=== PATIENT | male | born 1995 | race Caucasian/White ===

== ENCOUNTER 2016-07-05 06:34 | Day surgery (SDC) | payer BC ==
[~2016-07-05 06:34] MED LIST: Lactated Ringers 1,000 ML IV SCH; Lidocaine 1%/Sod Bicarbonate in NS 8.4% 1 ML Syringe IV PRN; Sodium Chloride 0.9% 10 ML Syringe FLUSH PRN
[2016-07-05] MEDS ORDERED: Propofol 200 MG/20 ML SDV ONE (06:48)
[2016-07-05] MEDS ORDERED: Lidocaine 1% 4 ML ONE (06:48)
[2016-07-05] MEDS ORDERED: Dexamethasone 4 MG/ML 5 ML MDV ONE (06:48)
[2016-07-05] MEDS ORDERED: Ondansetron 4 MG/2 ML SDV ONE (06:48)
[2016-07-05] MEDS ORDERED: Ketamine 500 mg/10 ML MDV ONE (06:49)
[2016-07-05] MEDS ORDERED: fentaNYL 250 MCG/5 ML SDV ONE (06:49)
[2016-07-05] MEDS ORDERED: EPINEPHrine 1:1000 1 MG/ML 30 ML MDV ONE (06:49)
[2016-07-05] MEDS ORDERED: Midazolam 1 MG/ML 2 ML SDV ONE (06:49)
[2016-07-05] MEDS ORDERED: Bupivacaine 0.25% 30 ML SDV ONE (06:56)
--- NOTE | 2016-07-05 07:05 | PCM.PREANE ---
Preanesthetic Assessment - Anesthesia/Transfusion/Family Hx Anesthesia History: Prior Anesthesia Without Reaction Type of Anesthesia Reaction: Unknown Family History of Anesthesia Reaction: No Transfusion History: No Prior Transfusion(s) Type of Transfusion Reactions: Reports: Unknown Intubation History: Unknown - Review of Systems General: No Symptoms Pulmonary: No Symptoms Cardiovascular: No Symptoms Gastrointestinal: No symptoms Neurological: No Symptoms Other: Reports: None - Physical Assessment NPO Status Date: 07/04/16 NPO Status Time: 21:00 Pulse: 54 O2 Sat by Pulse Oximetry: 98 Respiratory Rate: 19 Blood Pressure: 129/70 Height: 1.91 m Weight: 95.254 kg ASA Class: 2 Mental Status: Alert & Oriented x3 Airway Class: Mallampati = 1 Dentition: Reports: Normal Dentition Thyro-Mental Finger Breadths: 3 Mouth Opening Finger Breadths: 3 ROM/Head Extension: Full Lungs: Clear to auscultation, Normal respiratory effort Cardiovascular: Regular Rate, Regular Rhythm - Lab Values: Laboratory Last Values WBC 5.89 K/mm3 (4.23-9.07) 06/29/16 13:04 RBC 5.25 M/mm3 (4.63-6.08) 06/29/16 13:04 Hgb 15.4 gm/L (13.7-17.5) 06/29/16 13:04 Hct 43.9 % (40.1-51.0) 06/29/16 13:04 MCV 83.6 fl (79.0-92.2) 06/29/16 13:04 MCH 29.3 pg (25.7-32.2) 06/29/16 13:04 MCHC 35.1 g/dl (32.2-35.5) 06/29/16 13:04 RDW Std Deviation 38.8 fL (35.1-43.9) 06/29/16 13:04 Plt Count 245 K/mm3 (163-337) 06/29/16 13:04 MPV 11.3 fl (9.4-12.3) 06/29/16 13:04 Neut % (Auto) 55.3 % (34.0-67.9) 06/29/16 13:04 Lymph % (Auto) 33.8 % (21.8-53.1) 06/29/16 13:04 [place] % (Auto) 8.5 % (5.3-12.2) 06/29/16 13:04 Eos % (Auto) 1.5 (0.8-7.0) 06/29/16 13:04 Baso % (Auto) 0.7 % (0.1-1.2) 06/29/16 13:04 Neut # (Auto) 3.26 K/mm3 (1.78-5.38) 06/29/16 13:04 Lymph # (Auto) 1.99 K/mm3 (1.32-3.57) 06/29/16 13:04 [place] # (Auto) 0.50 K/mm3 (0.30-0.82) 06/29/16 13:04 Eos # (Auto) 0.09 K/mm3 (0.04-0.54) 06/29/16 13:04 Baso # (Auto) 0.04 K/mm3 (0.01-0.08) 06/29/16 13:04 Sodium 139 mEq/L (136-145) 06/29/16 13:04 Potassium 3.7 mEq/L (3.5-5.1) 06/29/16 13:04 Chloride 106 mEq/L (98-107) 06/29/16 13:04 Carbon Dioxide 25 mEq/L (21-32) 06/29/16 13:04 Anion Gap 11.7 (5-15) 06/29/16 13:04 BUN 13 mg/dL (7-18) 06/29/16 13:04 Creatinine 1.0 mg/dL (0.7-1.3) 06/29/16 13:04 Est Cr Clr Drug Dosing 138.49 mL/min 06/29/16 13:04 Estimated GFR (MDRD) > 60 mL/min (>60) 06/29/16 13:04 BUN/Creatinine Ratio 13.0 (14-18) L 06/29/16 13:04 Glucose 99 mg/dL (74-106) 06/29/16 13:04 Calcium 9.1 mg/dL (8.5-10.1) 06/29/16 13:04 MRSA (PCR) Negative 06/29/16 13:04 - Allergies Allergies/Adverse Reactions: Allergies Allergy/AdvReac Type Severity Reaction Status Date / Time hayfever Allergy Itching Uncoded 07/04/16 15:03 - Blood Blood Available: No Product(s) Available: None - Anesthesia Plan Pre-Op Medication Ordered: None - Acknowledgements Anesthesia Type Planned: General Anesthesia Pt an Appropriate Candidate for the Planned Anesthesia: Yes Alternatives and Risks of Anesthesia Discussed w Pt/Guardian: Yes Pt/Guardian Understands and Agrees with Anesthesia Plan: Yes PreAnesthesia Questionnaire - Past Health History Medical/Surgical History: Denies Medical/Surgical History Cardiovascular History: Reports: None Respiratory History: Reports: None Gastrointestinal History: Reports: None Genitourinary History: Reports: None [employer]DI[employer] WORKER History: Reports: None Neurological History: Reports: None Psychiatric History: Reports: None Endocrine/Metabolic History: Reports: None Hematologic History: Reports: None Immunologic History: Reports: None Oncologic (Cancer) History: Reports: None Dermatologic History: Reports: None - Past Surgical History Head Surgeries/Procedures: Reports: None HEENT Surgical History: Reports: Other (see below) Other HEENT Surgeries/Procedures: ear surgery Musculoskeletal Surgical History: Reports: Other (see below) Other Musculoskeletal Surgeries/Procedures:: toe surgery - SUBSTANCE USE Smoking Status *Q: Current Every Day Smoker Tobacco Use Within Last Twelve Months: Snuff/Dip Second Hand Smoke Exposure: No Days Per Week of Alcohol Use: 0 Recreational Drug Use History: No - HOME MEDS Home Medications: Home Meds Cyclobenzaprine [Flexeril] 10 mg PO TID PRN #40 tablet 07/05/16 [Rx] Hydrocodone/Acetaminophen [[place] 5-325 Tablet] 1 - 2 each PO Q6H PRN #40 tablet 07/05/16 [Rx] Aspirin 325 mg PO BID #84 tablet 07/06/16 [Rx] - CURRENT (IN HOUSE) MEDS Current Meds: Current Medications Lactated Ringer's (Ringers, Lactated) 1,000 mls @ 125 mls/hr IV ASDIRECTED RICO Stop: 07/05/16 23:00 Lidocaine/Sodium Bicarbonate (Buffered Lidocaine 1% In Ns 8.4%) 0.25 ml IV ONETIME PRN PRN Reason: Prior to IV Start Stop: 07/05/16 18:00 Sodium Chloride (Saline Flush) 10 ml FLUSH ASDIRECTED PRN PRN Reason: Keep Vein Open Stop: 07/05/16 18:00 Discontinued Medications Dexamethasone (Dexamethasone) Confirm Administered Dose 20 mg .ROUTE .STK-MED ONE Stop: 07/05/16 06:49 Epinephrine HCl (Adrenalin 1:1000) Confirm Administered Dose 30 mg .ROUTE .STK- MED ONE Stop: 07/05/16 06:50 Fentanyl (Sublimaze) Confirm Administered Dose 250 mcg .ROUTE .STK-MED ONE Stop: 07/05/16 06:50 Lidocaine HCl (Xylocaine-Mpf 1%) Confirm Administered Dose 4 mls @ as directed .ROUTE .STK-MED ONE Stop: 07/05/16 06:49 Ketamine HCl (Ketalar) Confirm Administered Dose 500 mg .ROUTE .STK-MED ONE Stop: 07/05/16 06:50 Midazolam HCl (Versed 1 Mg/Ml) Confirm Administered Dose 2 mg .ROUTE .STK-MED ONE Stop: 07/05/16 06:50 Ondansetron HCl (Zofran) Confirm Administered Dose 4 mg .ROUTE .STK-MED ONE Stop: 07/05/16 06:49 Propofol (Diprivan 20 Ml) Confirm Administered Dose 200 mg .ROUTE .STK-MED ONE Stop: 07/05/16 06:49
[2016-07-05] MEDS ORDERED: Ondansetron 4 MG/2 ML SDV IVPUSH PRN (08:23)
[2016-07-05] MEDS ORDERED: Meperidine PF 50 MG/ML Syringe IVPUSH PRN (08:23)
[2016-07-05] MEDS ORDERED: fentaNYL 100 MCG/2 ML SDV IVPUSH PRN (08:23)
[2016-07-05] MEDS ORDERED: diphenhydrAMINE 50 MG/ML SDV IVPUSH PRN (08:23)
[2016-07-05] MEDS ORDERED: HYDROmorphone 1 MG/ML Syringe ONE ×2 (08:27→08:45)
[2016-07-05] MEDS ORDERED: ceFAZolin 1 GM Vial ONE (08:27)
[2016-07-05] MEDS ORDERED: Lactated Ringers 1,000 ML ONE (09:31)
--- NOTE | 2016-07-05 09:49 | PCM.POSTAN ---
POST ANESTHESIA ASSESSMENT - MENTAL STATUS Mental Status: alert, oriented - VITAL SIGNS Pulse Rate: 85 SaO2: 98 Resp Rate: 12 Blood Pressure: 151/75 Temperature: 36.5 C - RESPIRATORY Respiratory Status: respiratory rate WNL, airway patent, O2 saturation stable, supplemental oxygen - CARDIOVASCULAR CV Status: pulse rate WNL, blood pressure stable - GASTROINTESTINAL GI Status: no symptoms - PAIN Pain Score: 0 - POST OP HYDRATION Hydration Status: adequate & stable
[2016-07-05] MEDS: HYDROmorphone 0.5 MG/0.5 ML Syringe IVPUSH PRN ×2 (10:03→10:33)
[2016-07-05] MEDS ORDERED: Acetaminophen/HYDROcodone 325-5 MG Tab PO PRN (10:07)
[2016-07-05 12:04] VITALS: BP 129/75
--- NOTE | 2016-07-05 12:24 | CR ---
Left knee: Single AP view of the left knee was obtained fluoroscopically using the C-arm device. Comparison: Previous left knee study of 03/21/16 is available. Previous ACL repair is seen on this one view. Fluoroscopy time given as 2.9 seconds. Impression: 1. Finding as noted above. Diagnostic code #2
--- NOTE | 2016-07-05 13:00 | PCM48HPAN ---
Post Anesthesia Note - EVALUATION WITHIN 48HRS OF ANESTHETIC Vital Signs in Normal Range: Yes Patient Participated in Evaluation: Yes Respiratory Function Stable: Yes Airway Patent: Yes Cardiovascular Function Stable: Yes Hydration Status Stable: Yes Pain Control Satisfactory: Yes Nausea and Vomiting Control Satisfactory: Yes Mental Status Recovered: Yes
--- NOTE | 2016-07-05 17:23 | PCM.OPNOTE ---
- General Post-Op/Procedure Note Date of Surgery/Procedure: 07/05/16 Operative Procedure(s): left knee arthroscopy with ACL autograft quad tendon reconstruction Pre Op Diagnosis: left knee ACL rupture Post-Op Diagnosis: Same Anesthesia Technique: General LMA, Local Primary Surgeon: Ash Johnson Anesthesia Provider: Tereso Parikh Cinder Pit Crane Operator: Stephanie Martinez Cinder Pit Crane Operator: Estefania Stewart EBL in mLs: 10 Complications: None Condition: Good Free Text/Narrative:: Intake & Output 07/05/16 07/05/16 07/05/16 06:59 14:59 22:59 Intake Total 800 Balance 800
--- NOTE | 2016-07-05 18:40 | OR ---
DATE OF OPERATION: 07/05/2016 SURGEON: Ash Johnson MD PROCEDURE: Left knee arthroscopy with ACL allograft reconstruction with quad tendon autograft. PREOPERATIVE DIAGNOSIS: Left knee ACL rupture. POSTOPERATIVE DIAGNOSIS: Left knee ACL rupture. ANESTHESIA: General LMA with local. ANESTHESIA PROVIDER: Dr. Tereso Parikh. CHIMNEY BUILDER HELPER: Stephanie Martinez PA-C and Estefania Stewart LPN. ESTIMATED BLOOD LOSS: 10 mL. COMPLICATIONS: None. CONDITION: Stable. DESCRIPTION OF PROCEDURE: The patient was identified in the preop holding area. Proper site was marked and identified by the surgeon. The patient was taken back to the operating theater where after adequate anesthesia, the patient's right lower extremity was placed in a well leg thortnon. The left lower extremity was placed in a C-clamp thornton after a nonsterile tourniquet was applied. The left lower extremity was then sterilely prepped and draped in the usual sterile fashion. OR time-out was performed. The patient received 2 g IV Ancef. The left lower extremity was then exsanguinated. Tourniquet was insufflated to 250 mmHg. Standard anterior lateral portal was created and scope trocar was introduced. There was no chondromalacia noted in the patellofemoral joint. There are no loose or foreign bodies in the mediolateral gutter. Attention was turned to the medial compartment. With the use of spinal needle, anterior medial portal was then created. There was no meniscus tear. Chondromalacia noted of the medial compartment. There was noted to be complete disruption of the ACL on the notch. Lateral compartment showed no signs of chondromalacia or meniscus tear. At this time, the scope was removed. A small incision was made at the superior pole of the patella. Blunt dissection was taken down to the quadriceps tendon. The quadriceps tendon was then visualized, a 9 mm parallel knife blade was then used up to 75 mm. At this time, the end of the graft of the quad tendon was clamped with an Allis clamp and a running stitch was then placed into the last 25 mm of the tendon. Next, a cigar cutter was placed up and a 75 mm graft was harvested. There was no disruption of the capsule. At this time, adequate saline was irrigated through the wound. 3-0 Vicryl was used subcutaneously to close. The graft was then taken back to the back table with Stephanie Martinez PA-C and Estefania Stewart LPN and then was prepared, it fits through a 9 and half graft on the femoral side and 10 graft on the tibial side. This was then prepared in the usual fashion. While this was being done, the notch was then cleared of old ACL fibers. The tibial cutting guide was then placed at 55 degrees and a guide pin was placed through the old fibers of the old ACL. A 10 mm reamer was then reamed in the tibia. Next, 105 degree angled guide was used for the femoral attachment. This was taken back to the old attachment near the posterior lateral condyle. A small incision was made on the lateral aspect of the knee on the femoral condyle. The guide pin was then placed down and the flip cutter was placed. It was found to be in adequate position. The 9.5 mm flip cutter was then taken back to the level 25 mm. The tunnel was found to be in adequate position. Excess bone was then irrigated out of the knee. Graft was then passed up through the tibia into the femur. The Endobutton was then flipped and C-arm fluoroscopy was used to make sure it had flipped. The tendon was then shuttled up into the femoral tunnel and it was cycled and tightened, it was found to have adequate fixation on the femoral side. Next, 3.2 mm drill bit was used on the tibial side. A 4.5 mm screw with a washer was placed. The sutures were tied over this and then this was tightened down. It was found to have adequate tightness under direct visualization with an anterior drawer. The patient had full extension and flexion with no block to motion. At this time, excess saline was drained from the knee. All incisions were closed using 3-0 Vicryl and Monocryl. Sterile soft dressing was applied along with a hinged knee brace. The patient tolerated the procedure well and sent to PACU in stable condition. OPERATION PERFORMED: JANELLE /[id number]
== END 2016-07-05 11:46 | disposition home or self-care (01) ==
LOC: JD.SDS 06:34
PROVIDERS: ATTEND Orthopaedic Surgery
DX: S83.512A Sprain of anterior cruciate ligament of left knee, initial encounter (principal)
CPT/HCPCS: 29888; 36415; 76000; 80048; 85025; 87641; A9270; J0171; J0690; J1100; J1170; J2175; J2250; J2405; J3010; J7120; 01400; C1713; J2704; J3490

== ENCOUNTER 2022-08-07 17:22 | Emergency (ER) | payer BC, OTHER ==
[2022-08-07 19:21] VITALS: BP 158/79; PULSE 66
[2022-08-07] MEDS ORDERED: Diphtheria,Pertussis(Acell),Tetanus Vaccine 0.5 ML Syringe IM ONE (19:32)
[2022-08-07] MEDS ORDERED: Ketorolac 60 MG/2 ML SDV IM ONE (19:37)
[2022-08-07] MEDS ORDERED: Cefdinir 300 MG Cap PO ONE (20:03)
== END 2022-08-07 20:25 | disposition home or self-care (01) ==
LOC: JD.ED 17:22
DX: S62.633B Displaced fracture of distal phalanx of left middle finger, initial encounter for open fracture (principal); Z91.09 Other allergy status, other than to drugs and biological substances; Z79.82 Long term (current) use of aspirin; Z72.0 Tobacco use; Z23 Encounter for immunization; W23.1XXA Caught, crushed, jammed, or pinched between stationary objects, initial encounter
CPT/HCPCS: 73130; 90471; 90715; 96372; 99283; A9270; J1885